=== PATIENT | female | born 1985 | race Caucasian/White ===

== ENCOUNTER 2024-07-05 17:17 | Emergency (ER) | payer BC ==
[2024-07-05 19:13] LABS: BASO % 0.6 % (0.0-1.0); EOS # 0.4 10*3/uL (0.0-0.4); EOS % 6.5 % (1.0-4.0); HEMATOCRIT 39.2 % (37.0-47.0); MEAN CELL VOLUME 91.2 fl (81.0-99.0); MEAN CORPUSCULAR HGB 29.1 pg (27.0-31.0); MEAN CORPUSCULAR HGB CONC 31.9 g/dl (33.0-37.0); MEAN PLATELET VOLUME 10.2 fl (9.6-12.3); MONO # 0.6 10*3/uL (0.1-1.0); MONO % 8.6 % (3.0-9.0); NEUT # 3.7 10*3/uL (2.3-7.9); NEUT % 55.6 % (47.0-73.0); PLATELET COUNT AUTOMATED 273 10*3/uL (130-400); WHITE BLOOD COUNT 6.6 10*3/uL (4.8-10.8)
[2024-07-05 19:40] LABS: BUN 6 mg/dl (9-23); CHLORIDE 103 mmol/L (98-107)
[2024-07-05 19:53] LABS: BILIRUBIN Negative (Negative); BLOOD 3+ (Negative); CLARITY Clear (Clear); COLOR Red (Yellow); GLUCOSE Negative (Negative); KETONE Negative (Negative); LEUKO ESTERASE Trace (Negative); NITRITE Negative (Negative); UROBILINOGEN 0.2 E.U./dl (0.0-1.0)
[2024-07-05 20:03] LABS: RBC TNTC rbc/hpf (0-2); WBC 0-2 wbc/hpf (0-5)
== END 2024-07-05 20:27 | disposition home or self-care (01) ==
LOC: ED 17:17
PROVIDERS: Physician Assistant Medical
DX: R89.1 Abnormal level of hormones in specimens from other organs, systems and tissues (principal); N93.9 Abnormal uterine and vaginal bleeding, unspecified; R10.2 Pelvic and perineal pain